=== PATIENT | female | born 1970 | race Hispanic/Latino ===

== ENCOUNTER 2017-04-04 15:03 | Emergency (ER) | payer MEDICAID ==
[2017-04-04 15:10] VITALS: BP 107/75; PULSE 81; RESP 20; TEMP 98; O2SAT 97
--- NOTE | 2017-04-04 15:58 | C.PDOC ---
Time Seen by Provider: 04/04/17 15:42 Chief Complaint (Nursing): ENT Problem Past Medical History Vital Signs: Last Vital Signs Temp 98 F 04/04/17 15:09 Pulse 81 04/04/17 15:09 Resp 20 04/04/17 15:09 BP 107/75 04/04/17 15:09 Pulse Ox 97 04/04/17 15:09 - Medical History PMH: HTN, Hypothyroidism - Social History Hx Alcohol Use: Yes Hx Substance Use: No ED Course And Treatment O2 Sat by Pulse Oximetry: 97 Disposition Counseled Patient/Family Regarding: Need For Followup, Rx Given - Disposition Referrals: Russell Johnson MD [Staff Provider] - Disposition: HOME/ ROUTINE Disposition Time: 15:55 Condition: GUARDED Additional Instructions: Follow up with ENT. If you can not please return to the Emergency Department for further evaluation. Prescriptions: Azithromycin [Zithromax] 250 mg PO DAILY #6 tab Ibuprofen [Motrin] 600 mg PO TID #15 tab Instructions: Pharyngitis (ED) - POA Present On Arrival: None - Clinical Impression Clinical Impression: Throat pain in adult
--- NOTE | 2017-04-04 15:59 | C.PDOC ---
History Of Present Illness 46yo female, with history of hypertension, thyroid problems, presents to the ED for evaluation of painful "lump" in her throat present for the past two weeks. Patient reports the pain has been worsening and she has been unable to eat and swallow properly. Patient reports she is an active smoker but denies any shortness of breath, chest pain, cough, fever, rhinorrhea or sore throat. Patient states her PCP is in [place], [place] and she has been unable to follow up because she is in the process of moving to [place]. She currently denies any other medical complaints. Time Seen by Provider: 04/04/17 15:42 Chief Complaint (Nursing): ENT Problem History Per: Patient History/Exam Limitations: None Onset/Duration Of Symptoms: Days, Persistent Current Symptoms Are (Timing): Still Present Symptoms Have Been: Continuous Past Medical History Reviewed: Historical Data, Nursing Documentation, Vital Signs Vital Signs: Last Vital Signs Temp 98 F 04/04/17 15:09 Pulse 81 04/04/17 15:09 Resp 20 04/04/17 15:09 BP 107/75 04/04/17 15:09 Pulse Ox 97 04/04/17 16:14 - Medical History PMH: HTN, Hypothyroidism Surgical History: No Surg Hx Family History: States: No Known Family Hx - Social History Hx Tobacco Use: Yes (smokes 1/2 pack per day) Hx Alcohol Use: Yes Hx Substance Use: No Review Of Systems Constitutional: Positive for: Chills. Negative for: Fever ENT: Positive for: Throat Pain Cardiovascular: Negative for: Chest Pain Respiratory: Negative for: Cough, Shortness of Breath Physical Exam - Physical Exam Appears: Non-toxic Skin: Warm, Dry Throat: Erythema (mild), No Exudate, Other (uvula midline) Neck: Supple Lymphatic: Adenopathy (mild left submandibular adenopathy noted) Cardiovascular: Rhythm Regular Respiratory: Normal Breath Sounds, No Wheezing ED Course And Treatment O2 Sat by Pulse Oximetry: 97 (RA) Pulse Ox Interpretation: Normal Medical Decision Making Medical Decision Making: Impression: 46yo female, history of smoking, presents with throat pain x 2 weeks due to a "lump" Plan: -- Patient counseled regarding serious nature of presentation; informed that due to her history as a smoker, increased risks are present. Patient informed on need to follow up with ENT and if she is not able to within the next 2-3 days , to return to the ED immediately for further evaluation. Patient expresses understanding and is aware of plan. Patient to be discharged with prescriptions for pain as well as prescription antibiotics. Disposition - Disposition Referrals: Russell Johnson MD [Staff Provider] - Disposition Time: 16:15 Condition: STABLE Additional Instructions: Follow up with ENT. If you can not please return to the Emergency Department for further evaluation. Prescriptions: Azithromycin [Zithromax] 250 mg PO DAILY #6 tab Ibuprofen [Motrin] 600 mg PO TID #15 tab Instructions: Pharyngitis (ED) Forms: [employer] (Spanish) - Clinical Impression Clinical Impression: Throat pain in adult - Scribe Statement The provider has reviewed the documentation as recorded by the Marci Nelson Provider Attestation All medical record entries made by the Marci were at my direction and personally dictated by me. I have reviewed the chart and agree that the record accurately reflects my personal performance of the history, physical exam, medical decision making, and the department course for this patient. I have also personally directed, reviewed, and agree with the discharge instructions and disposition.
== END 2017-04-04 16:06 | disposition home or self-care (01) ==
LOC: C.ER 15:03
DX: R07.0 Pain in throat (principal)

== ENCOUNTER 2017-08-06 00:29 | Emergency (ER) | payer MEDICAID ==
[2017-08-06 00:30] VITALS: BMI 25.0
[2017-08-06] MEDS ORDERED: Naproxen 550 mg Tab PO STA (00:58)
[2017-08-06] MEDS ORDERED: Naproxen 550 mg Tab PO ONE (01:11)
--- NOTE | 2017-08-06 01:37 | C.PDOC ---
History Of Present Illness Pt c/o b/l foot pain. Pt is homeless and often walks around in wet/cold conditions. Time Seen by Provider: 08/06/17 00:51 Chief Complaint (Nursing): Lower Extremity Problem/Injury History Per: Patient Onset/Duration Of Symptoms: Days Current Symptoms Are (Timing): Still Present Severity: Moderate Additional History Per: Prior Records Past Medical History Reviewed: Historical Data, Nursing Documentation, Vital Signs Vital Signs: Last Vital Signs Temp 98.7 F 08/06/17 00:39 Pulse 97 H 08/06/17 00:39 Resp 14 08/06/17 00:39 BP 105/72 08/06/17 00:39 Pulse Ox 99 08/06/17 01:38 - Medical History PMH: Depression, HTN, Hypothyroidism, Post Traumatic Stress Disorder Family History: States: Unknown Family Hx - Social History Hx Tobacco Use: Yes (smokes 1/2 pack per day) Hx Alcohol Use: Yes Hx Substance Use: No Review Of Systems Except As Marked, All Systems Reviewed And Found Negative. Constitutional: Negative for: Fever, Weakness Cardiovascular: Negative for: Chest Pain Respiratory: Negative for: Shortness of Breath Gastrointestinal: Negative for: Vomiting, Abdominal Pain Genitourinary: Negative for: Dysuria Musculoskeletal: Positive for: Foot Pain. Negative for: Neck Pain, Back Pain Neurological: Positive for: Numbness (in b/l toes on/off). Negative for: Weakness Physical Exam - Physical Exam Appears: Non-toxic, No Acute Distress Skin: Normal Color, Warm, Dry Head: Atraumatic, Normacephalic Eye(s): bilateral: Normal Inspection, PERRL, EOMI Neck: Normal ROM, Supple Cardiovascular: Rhythm Regular Respiratory: Normal Breath Sounds, No Accessory Muscle Use Gastrointestinal/Abdominal: Soft, No Tenderness Back: No CVA Tenderness, No Vertebral Tenderness Extremity: Normal ROM, No Calf Tenderness, No Deformity, Other (caluses on b/l toes) Extremity: Bilateral: Normal Color And Temperature Pulses: Left Dorsalis Pedis: Normal, Right Dorsalis Pedis: Normal Neurological/Psych: Oriented x3, Normal Motor, Normal Sensation ED Course And Treatment O2 Sat by Pulse Oximetry: 99 Pulse Ox Interpretation: Normal Reassessment Condition: Improved Disposition Counseled Patient/Family Regarding: Diagnosis, Need For Followup, Smoking Cessation - Disposition Referrals: Podiatry Clinic [Outside] Disposition: HOME/ ROUTINE Disposition Time: 02:00 Condition: IMPROVED Additional Instructions: Follow up with your doctor or in the clinic. Return to the ER if you develop worsening of symptoms or if you have any other concerns. Forms: [facility] (Latvian), General Discharge Instructions - Clinical Impression Clinical Impression: Foot pain, bilateral
[2017-08-06 06:12] VITALS: TEMP 98.4; O2SAT 97
[2017-08-06 06:14] VITALS: BP 102/74; PULSE 90; RESP 14
== END 2017-08-06 04:50 | disposition home or self-care (01) ==
LOC: C.ER 00:29
DX: M79.672 Pain in left foot (principal); M79.671 Pain in right foot

== ENCOUNTER 2018-07-03 12:04 | Emergency (ER) | payer MEDICAID, OTHER ==
[2018-07-03 12:04] VITALS: BMI 25.0
[2018-07-03 12:27] VITALS: RESP 18
--- NOTE | 2018-07-03 13:54 | C.PDOC ---
History Of Present Illness 48 y/o female, homeless and has PMHx of depression and PTSD, comes in complaining of a 2 week history of chills, productive cough with white phlegm, increased SOB, and frontal head pain. States the SOB has worsened, which prompted her to the ER, but she notes that she always had SOB. Patient has no PMD and has not followed up with a doctor. Patient also complains of epigastric abdominal pain that is 4/10 in severity for the past 2 days, associated with one episode of vomiting and two episodes of diarrhea, both nonbloody. Patient admits she smokes cigarettes 1 ppd for the last 35 years, smokes marijuana daily, and drinks 1 to 2 beers daily with one shot of gin. Time Seen by Provider: 07/03/18 12:29 Chief Complaint (Nursing): Cough, Cold, Congestion History Per: Patient History/Exam Limitations: no limitations Onset/Duration Of Symptoms: Days Current Symptoms Are (Timing): Still Present Past Medical History Reviewed: Historical Data, Nursing Documentation, Vital Signs Vital Signs: Last Vital Signs Temp 98 F 07/03/18 12:19 Pulse 96 H 07/03/18 12:19 Resp 18 07/03/18 12:19 BP 163/93 H 07/03/18 12:19 Pulse Ox 93 L 07/03/18 12:19 - Medical History PMH: Anxiety, Depression, HTN, Hypothyroidism, Post Traumatic Stress Disorder Denies: HIV, Chronic Kidney Disease, Seizures, Sexually Transmitted Disease - [facility] GROUP PSYCHOTHERAPY (09/22/17) INDIVIDUAL PSYCHOTHERAPY, COGNITIVE-BEHAVIORAL (09/22/17) INDIVIDUAL PSYCHOTHERAPY, SUPPORTIVE (09/22/17) Family History: States: No Known Family Hx - Social History Hx Tobacco Use: Yes (smokes 1/2 pack per day) Hx Alcohol Use: Yes Hx Substance Use: Yes Review Of Systems Constitutional: Positive for: Chills. Negative for: Fever Cardiovascular: Negative for: Chest Pain Respiratory: Positive for: Cough, Shortness of Breath, Sputum (white) Gastrointestinal: Positive for: Vomiting, Abdominal Pain, Diarrhea Musculoskeletal: Positive for: Other (frontal head pain) Skin: Negative for: Rash Neurological: Negative for: Weakness, Numbness Physical Exam - Physical Exam Appears: Non-toxic, No Acute Distress, Unkempt, Other (Disheveled) Skin: Warm, Dry Head: No Tenderness (to frontal or maxillarty), Abrasion (on forehead) Eye(s): bilateral: Normal Inspection Oral Mucosa: Moist Neck: Normal ROM, Supple Chest: Symmetrical Cardiovascular: Rhythm Regular, No Murmur Respiratory: Normal Breath Sounds, No Rales, No Rhonchi, No Wheezing Gastrointestinal/Abdominal: Soft, No Tenderness Extremity: Bilateral: Atraumatic, Normal Color And Temperature, Normal ROM Neurological/Psych: Oriented x3, Normal Speech ED Course And Treatment - Laboratory Results Result Diagrams: 07/03/18 17:00 07/03/18 17:00 O2 Sat by Pulse Oximetry: 93 (RA) - Other Rad CXR X-Ray: Read By Radiologist Interpretation: FINDINGS: LUNGS: No consolidation noted. There is equivocal increased densities over the left infrahilar coursing bronchovascular markings which is probably due to summation of these vessels. The context of cough however, consider CT of the chest for further evaluations. PLEURA: No significant pleural effusion identified. No pneumothorax apparent. CARDIOVASCULAR: No aortic atherosclerotic calcification present. Normal cardiac size. No pulmonary vascular congestion. OSSEOUS STRUCTURES: No significant abnormalities. VISUALIZED UPPER ABDOMEN: Normal. OTHER FINDINGS: None. IMPRESSION: No consolidative infiltrate seen. Probable confluent left infrahilar bronchovascular markings resulting in the equivocal increased density perceived in left infrahilar location. If patient has any outside studies chest x-rays these be helpful in comparing stability. Otherwise, the most definitive evaluation of this area would be CT of the chest. Medical Decision Making Medical Decision Making: Plan: --EKG --Chest XR CXR result noted. Discussed with Dr. Ariza, radiology, who compared CXR to previous from 12/04/17 (Dr. Zheng who originally read CXR is not in house and could not access XR as it was done at [facility]). Reports current CXR as normal. XR result discussed with patient. She is requesting bloodwork because she has been vomiting. Denies nausea at this time. She has had no vomiting throughout ED course. CBC and BMP done, and were unremarkable. Lab results discussed with patient. Rx written for maribeth given chronic cough, to treat bronchitis. Advised outpatient followup as needed. Return to the ED for any new or worsening symptoms. Disposition - Disposition Disposition: HOME/ ROUTINE Disposition Time: 17:50 Condition: STABLE Additional Instructions: EARL HAN, thank you for letting us take care of you today. Your provider was Elida Mayes MD and you were treated for COUGHING/ASTHMA. The emergency medical care you received today was directed at your acute symptoms. If you were prescribed any medication, please fill it and take as directed. It may take several days for your symptoms to resolve. Return to the Emergency Department if your symptoms worsen, do not improve, or if you have any other problems. Please contact your doctor or call one of the physicians/clinics you have been referred to that are listed on the Patient Visit Information form that is included in your discharge packet. Bring any paperwork you were given at discharge with you along with any medications you are taking to your follow up visit. Our treatment cannot replace ongoing medical care by a primary care provider outside of the emergency department. Thank you for allowing the [facility] team to be part of your care today. If you had an X-Ray or CT scan: A Radiologist will review the ED reading if any change in treatment is needed we will contact you. If you had a blood, urine, or wound culture: It will take several days for the results, if any change in treatment is needed we will contact you. If you had an STI test: It will take 48 hours for the results. Please call after 1 week if you have not heard back. Prescriptions: Azithromycin [Zithromax] 250 mg PO DAILY #6 tab Instructions: Acute Bronchitis, Adult (DC) Forms: [employer] (Guinean) - Clinical Impression Clinical Impression: Bronchitis, Vomiting - Scribe Statement The provider has reviewed the documentation as recorded by the Marci Romano Provider Attestation: All medical record entries made by the Reginaldoibjemal were at my direction and personally dictated by me. I have reviewed the chart and agree that the record accurately reflects my personal performance of the history, physical exam, the [facility] decision making, and the department course for this patient. I have also personally directed, reviewed, and agree with the discharge instructions and disposition.
--- NOTE | 2018-07-03 15:35 | RAD ---
Date of service: 07/03/2018 HISTORY: cough COMPARISON: No prior. TECHNIQUE: Chest PA and lateral FINDINGS: LUNGS: No consolidation noted. There is equivocal increased densities over the left infrahilar coursing bronchovascular markings which is probably due to summation of these vessels. The context of cough however, consider CT of the chest for further evaluations. PLEURA: No significant pleural effusion identified. No pneumothorax apparent. CARDIOVASCULAR: No aortic atherosclerotic calcification present. Normal cardiac size. No pulmonary vascular congestion. OSSEOUS STRUCTURES: No significant abnormalities. VISUALIZED UPPER ABDOMEN: Normal. OTHER FINDINGS: None. IMPRESSION: No consolidative infiltrate seen. Probable confluent left infrahilar bronchovascular markings resulting in the equivocal increased density perceived in left infrahilar location. If patient has any outside studies chest x-rays these be helpful in comparing stability. Otherwise, the most definitive evaluation of this area would be CT of the chest.
[2018-07-03 17:13] LABS: BASO % 0.4 % (0.0-2.0); EOS # 0.1 K/uL (0.0-0.7); EOS % 0.7 % (0.0-4.0); HEMOGLOBIN 16.9 g/dL (11.0-16.0); LYMPH # 1.9 K/uL (1.0-4.3); MEAN CELL VOLUME 101.7 fL (81.0-99.0); MEAN CORPUSCULAR HEMOGLOBIN 35.1 pg (27.0-31.0); MEAN CORPUSCULAR HGB CONC 34.5 g/dL (33.0-37.0); MEAN PLATELET VOLUME 8.6 fL (7.2-11.7); MONO # 0.9 K/uL (0.0-0.8); MONO % 9.3 % (0.0-10.0); NEUT # 6.4 K/uL (1.8-7.0); NEUT % 68.6 % (50.0-75.0); RBC 4.81 Mil/uL (3.80-5.20); RED CELL DISTRIBUTION WIDTH 13.9 % (11.5-14.5); WHITE BLOOD COUNT 9.3 K/uL (4.8-10.8)
[2018-07-03 17:33] LABS: BLOOD UREA NITROGEN 9 mg/dL (7-17); CALCIUM 9.6 mg/dl (8.6-10.4); GFR NON-AFRICAN AMERICAN > 60
[2018-07-03 17:58] VITALS: BP 160/92; PULSE 72; TEMP 98.2
[2018-07-03 18:03] VITALS: O2SAT 93
--- NOTE | 2018-07-04 14:33 | CARD ---
APPROVED REPORT Date of service: 07/03/2018 EKG Measurement Heart [id number] <Conclusion> Normal sinus rhythm Possible Left atrial enlargement Borderline ECG
== END 2018-07-03 17:58 | disposition home or self-care (01) ==
LOC: C.ER 12:04
DX: J40 Bronchitis, not specified as acute or chronic (principal); R11.10 Vomiting, unspecified; I10 Essential (primary) hypertension; F17.210 Nicotine dependence, cigarettes, uncomplicated